=== PATIENT | female | born 1995 | race African-American/Black ===

== ENCOUNTER 2016-08-01 23:55 | Emergency (ER) | payer MEDICARE, OTHER ==
[~2016-08-01 23:55] MED LIST: CEPH-460 PO; DOXY1TAB6 PO
[2016-08-02] VITALS: BP 181/81; PULSE 80; RESP 16; TEMP 97.6; O2SAT 98
[2016-08-02] MEDS ORDERED: METF500T PO (00:32)
[2016-08-02] MEDS ORDERED: SODIUM CHLORIDE 0.9% FLUSH 5 ML FLUSH IVF PRN (02:00)
[2016-08-02] MEDS ORDERED: DICYCLOMINE HCL 10 MG CAP PO ONE (02:00)
[2016-08-02] MEDS ORDERED: MORPHINE SULFATE 8 MG/ML INJ IV PUSH ONE (02:00)
[2016-08-02 02:43] VITALS: BP 135/73; PULSE 78; RESP 18; O2SAT 100; O2SAT 99
[2016-08-02 02:51] LABS: BASOPHIL # 0.1 TH/MM3 (0-0.2); BASOPHIL % 0.7 % (0.0-2.0); EOSINOPHIL # 0.1 TH/MM3 (0-0.4); EOSINOPHIL % 1.1 % (0.0-4.0); HEMATOCRIT 41.3 % (35.0-46.0); HEMO FLAGS DIFF FINAL; LYMPH % 38.7 % (9.0-44.0); LYMPHOCYTE # 2.8 TH/MM3 (1.0-4.8); MEAN CELL VOLUME 79.2 FL (80.0-100.0); MEAN CORPUSCULAR HEMOGLOBIN 25.9 PG (27.0-34.0); MEAN CORPUSCULAR HGB CONC 32.7 % (32.0-36.0); MONO % 5.6 % (0.0-8.0); NEUT % 53.9 % (16.0-70.0); PLATELET COUNT 360 TH/MM3 (150-450); RED BLOOD COUNT 5.22 MIL/MM3 (4.00-5.30); RED CELL DISTRIBUTION WIDTH 14.4 % (11.6-17.2); WHITE BLOOD COUNT 7.3 TH/MM3 (4.0-11.0)
[2016-08-02 03:14] LABS: ALT (GPT) 32 U/L (10-53); ANION GAP 7 MEQ/L (5-15); AST (GOT) 19 U/L (15-37); BICARBONATE 26.6 MEQ/L (21.0-32.0); BLOOD UREA NITROGEN 10 MG/DL (7-18); CHLORIDE 106 MEQ/L (98-107); GLOMERULAR FILTRATION RATE 90 ML/MIN (>89); POTASSIUM 4.4 MEQ/L (3.5-5.1); SODIUM (NA) 140 MEQ/L (136-145)
[2016-08-02 03:16] LABS: ALKALINE PHOSPHATASE 60 U/L (45-117); TOTAL BILIRUBIN ADULT 0.2 MG/DL (0.2-1.0)
--- NOTE | 2016-08-02 03:20 | PD ---
HPI Chief Complaint: Care Management Associate Problem/Complaint Time Seen by Provider: 00:28 Travel History International Travel<30 days: No Contact w/Intl Traveler<30days: No Traveled to known affect area: No History of Present Illness HPI 21-year-old female arrives complaining of abdominal pain in the lower pelvis. It has been present for a couple days. It's worse with some changing of position. Onset has been gradual. Severity is variable the evidently is severe at times. She's had no nausea vomiting or diarrhea. She denies dysuria. No abnormal vaginal discharge or bleeding has occurred. The patient is normally irregular and the last menstruation occurred 5 months prior. Appetite has been normal. PFSH Past Medical History Asthma: Yes Cardiovascular Problems: Yes Diabetes: Yes (METFORMIN) Patient Takes Glucophage: Yes Diminished Hearing: No Genitourinary: Yes (POS) Hypertension: Yes Respiratory: Yes Immunizations Current: Yes Tetanus Vaccination: < 5 Years Influenza Vaccination: No ?: Unknown : 0 Para: 0 Miscarriage: 0 : 0 Past Surgical History Surgical History: No Previous Surgery Social History Alcohol Use: No Tobacco Use: No Substance Use: No (denies) Allergies-Medications (Allergen,Severity, Reaction): Coded Allergies: No Known Allergies (Unverified , 08/02/16) Reported Meds & Prescriptions Reported Meds & Active Scripts Active Reported Metformin (Metformin HCl) 500 Mg Tab 500 Mg PO BIDPC With meals Review of Systems Except as stated in HPI: all other systems reviewed are Neg Physical Exam Narrative GENERAL: 21-year-old female pleasant BMI greater than 40 SKIN: Warm and dry. HEAD: Atraumatic. Normocephalic. EYES: Pupils equal and round. No scleral icterus. No injection or drainage. ENT: No nasal bleeding or discharge. Mucous membranes pink and moist. NECK: Trachea midline. No JVD. CARDIOVASCULAR: Regular rate and rhythm. No murmur appreciated. RESPIRATORY: No accessory muscle use. Clear to auscultation. Breath sounds equal bilaterally. GASTROINTESTINAL: Soft. Nonspecific generalized tenderness present. MUSCULOSKELETAL: No obvious deformities. No clubbing. No cyanosis. No edema. NEUROLOGICAL: Awake and alert. No obvious cranial nerve deficits. Motor grossly within normal limits. Normal speech. PSYCHIATRIC: Appropriate mood and affect; insight and judgment normal. Data Data Last Documented VS Vital Signs Date Time Temp Pulse Resp B/P Pulse Ox O2 Delivery O2 Flow Rate FiO2 1/2/17 02:43 78 18 135/73 99 Room Air 08/02/16 00:00 97.6 Orders Ua Includes Microscopic (08/02/16 00:35) Ed Urine Pregnancytest Poc (08/02/16 00:35) Complete Blood Count With Diff (08/02/16 01:58) Comprehensive Metabolic Panel (08/02/16 01:58) Lipase (08/02/16 01:58) Iv Access Insert/Monitor (08/02/16 01:58) Ecg Monitoring (08/02/16 01:58) Oximetry (08/02/16 01:58) Sodium Chloride 0.9% Flush (Ns Flush) (08/02/16 02:00) Dicyclomine (Bentyl) (08/02/16 02:00) Morphine Inj (Morphine Inj) (08/02/16 02:00) Labs Laboratory Tests Test 08/02/16 08/02/16 02:38 03:35 White Blood Count 7.3 TH/MM3 Red Blood Count 5.22 MIL/MM3 Hemoglobin 13.5 GM/DL Hematocrit 41.3 % Mean Corpuscular Volume 79.2 FL Mean Corpuscular Hemoglobin 25.9 PG Mean Corpuscular Hemoglobin 32.7 % Concent Red Cell Distribution Width 14.4 % Platelet Count 360 TH/MM3 Mean Platelet Volume 7.8 FL Neutrophils (%) (Auto) 53.9 % Lymphocytes (%) (Auto) 38.7 % Monocytes (%) (Auto) 5.6 % Eosinophils (%) (Auto) 1.1 % Basophils (%) (Auto) 0.7 % Neutrophils # (Auto) 4.0 TH/MM3 Lymphocytes # (Auto) 2.8 TH/MM3 Monocytes # (Auto) 0.4 TH/MM3 Eosinophils # (Auto) 0.1 TH/MM3 Basophils # (Auto) 0.1 TH/MM3 CBC Comment DIFF FINAL Differential Comment Sodium Level 140 MEQ/L Potassium Level 4.4 MEQ/L Chloride Level 106 MEQ/L Carbon Dioxide Level 26.6 MEQ/L Anion Gap 7 MEQ/L Blood Urea Nitrogen 10 MG/DL Creatinine 0.94 MG/DL Estimat Glomerular Filtration 90 ML/MIN Rate Random Glucose 78 MG/DL Calcium Level 9.1 MG/DL Total Bilirubin 0.2 MG/DL Aspartate Amino Transf 19 U/L (AST/SGOT) Alanine Aminotransferase 32 U/L (ALT/SGPT) Alkaline Phosphatase 60 U/L Total Protein 8.0 GM/DL Albumin 3.6 GM/DL Lipase 107 U/L Urine Color LIGHT-YELLOW Urine Turbidity CLEAR Urine pH 5.5 Urine Specific [place] 1.006 Urine Protein NEG mg/dL Urine Glucose (UA) NEG mg/dL Urine Ketones NEG mg/dL Urine Occult Blood NEG Urine Nitrite NEG Urine Bilirubin NEG Urine Urobilinogen LESS THAN 2.0 MG/DL Urine Leukocyte Esterase MOD Urine RBC 1 /hpf Urine WBC 2 /hpf Urine Squamous Epithelial 2 /hpf Cells Urine Bacteria RARE /hpf MDM Medical Decision Making Medical Screen Exam Complete: Yes Emergency Medical Condition: Yes Medical Record Reviewed: Yes Differential Diagnosis Constipation, Gastritis, Acute Cholecystitis, Biliary Colic, Pancreatitis, MAR , Hepatitis, Bowel Obstruction, Cystitis, Mesenteric Ischemia, AAA, Appendicitis , Renal Stone/Hydronephrosis, GERD, perforated viscous Narrative Course CBC & BMP Diagram 08/02/16 02:38 LFTs normal Lipase normal Urinalysis shows no UTI The patient has slept throughout her ER course. The nature of her history and exam suggest or less in keeping with surgical or medical emergency. Pt will be discharged. Return precautions discussed. Diagnosis Primary Impression: Abdominal pain Qualified Code: R10.9 - Abdominal pain, unspecified location Referrals: Primary Care Physician 2 days Additional Instructions: You have a choice when it comes to health care, and we are glad that you chose [facility]. Hopefully, we have met your expectations on today's visit. You are welcome to return to [facility] at any time, as we are committed to meeting the health care needs of our community. Med/Other Pt SpecificInfo: No Change to Meds Disposition: 01 DISCHARGE HOME Condition: Gerry Burns MD Aug 02, 2016 03:20
[2016-08-02 04:01] LABS: BACTERIA, URINE RARE /hpf; BLOOD, URINE NEG (NEG); GLUCOSE,URINE NEG (NEG); KETONE, URINE NEG (NEG); NITRITE,URINE NEG (NEG); PH, URINE 5.5 (5.0-8.5); SQUAMOUS EPITHELIAL CELL URINE 2 /hpf (0-5); URINE COLOR LIGHT-YELLOW (YELLW/STRAW)
[2016-08-02 04:43] VITALS: BP 118/68; PULSE 69; RESP 18; O2SAT 100
[2016-08-02 04:59] VITALS: RESP 18
[2016-08-02] MEDS ORDERED: ACETAMINOPHEN/HYDROcodone 325 MG/5 MG TAB PO ONE (05:00)
== END 2016-08-02 05:01 | disposition home or self-care (01) ==
LOC: NEPC 23:55
DX: R10.2 Pelvic and perineal pain (principal)
CPT/HCPCS: 80053; 81001; 83690; 84703; 85025; 96374; 99284; J2270

== ENCOUNTER 2016-12-03 11:30 | Emergency (ER) | payer OTHER ==
[~2016-12-03] VITALS: Ht 182.9 cm; Wt 205.0 kg
[~2016-12-03 11:30] MED LIST changes: -CEPH-460 PO; -DOXY1TAB6 PO; +METF500T PO
[2016-12-03 11:32] VITALS: BP 180/86; PULSE 70; RESP 18; TEMP 98.2; O2SAT 100
--- NOTE | 2016-12-03 12:08 | PD ---
HPI Chief Complaint: Chest Pain Time Seen by Provider: 11:48 Travel History International Travel<30 days: No Contact w/Intl Traveler<30days: No Traveled to known affect area: No History of Present Illness HPI The patient is a 21-year-old [place] female who presents emergency department for chest pain, shortness of breath, and stress. The patient states she works 2 jobs, one at [employer] and the other is [email or web address]. The patient also is a college student at [employer], studying sociology. The patient states her last 5 days she's had constant chest pain which is described as constant, sharp, located over the sternum, nonradiating, associated mild shortness of breath, mild nausea. The patient denies any history of pulmonary embolism, DVT, or lower extremity edema. She denies any recent travel, hospitalizations, or surgeries. She is currently on Provera for irregular cycles, initially thought to be secondary to polycystic ovarian syndrome, but denies tobacco use. Patient does states she is under quite a bit of stress, sometimes her symptoms are exacerbated by thinking about her current situation. She denies any current abdominal pain, lower extremity edema, but does note intermittent lightheadedness and dizziness. PFSH Past Medical History Asthma: Yes Cardiovascular Problems: Yes (HTN ) Diabetes: Yes Patient Takes Glucophage: Yes Diminished Hearing: No Genitourinary: Yes (POS) Hypertension: Yes Respiratory: Yes Immunizations Current: Yes ?: Not : 0 Para: 0 Miscarriage: 0 : 0 Social History Alcohol Use: No Tobacco Use: No Substance Use: No (denies) Allergies-Medications (Allergen,Severity, Reaction): Coded Allergies: No Known Allergies (Unverified , 12/03/16) Reported Meds & Prescriptions Reported Meds & Active Scripts Active Reported Metformin (Metformin HCl) 500 Mg Tab 500 Mg PO BIDPC With meals Review of Systems Except as stated in HPI: all other systems reviewed are Neg General / Constitutional: No: Fever HENT: Positive: Lightheadedness Cardiovascular: Positive: Chest Pain or Discomfort, No: Dyspnea on exertion Respiratory: Positive: Shortness of Breath Gastrointestinal: Positive: Nausea Musculoskeletal: No: Myalgias, Arthralgias Neurologic: Positive: Dizziness Physical Exam Narrative GENERAL: Awake, alert, pleasant 21-year-old female who appears her stated age and is in no acute respiratory distress. SKIN: Focused skin assessment warm/dry. HEAD: Atraumatic. Normocephalic. EYES: Pupils equal and round. No scleral icterus. No injection or drainage. ENT: No nasal bleeding or discharge. Mucous membranes pink and moist. NECK: Trachea midline. No JVD. CARDIOVASCULAR: Regular rate and rhythm. No murmur appreciated. Heart rate in the 70s. RESPIRATORY: No accessory muscle use. Clear to auscultation. Breath sounds equal bilaterally. GASTROINTESTINAL: Abdomen soft, non-tender, nondistended. Obese, no rebound tenderness. MUSCULOSKELETAL: No obvious deformities. No clubbing. No cyanosis. No edema. Calves are soft bilaterally. NEUROLOGICAL: Awake and alert. No obvious cranial nerve deficits. Motor grossly within normal limits. Normal speech. PSYCHIATRIC: Appropriate mood and affect; insight and judgment normal. Data Data Last Documented VS Vital Signs Date Time Temp Pulse Resp B/P Pulse Ox O2 Delivery O2 Flow Rate FiO2 12/03/16 11:38 12/03/16 11:32 98.2 70 18 100 Orders Electrocardiogram (12/03/16 ) Electrocardiogram (12/03/16 12:02) Ckmb (Isoenzyme) Profile (12/03/16 12:02) Complete Blood Count With Diff (12/03/16 12:02) Comprehensive Metabolic Panel (12/03/16 12:02) Magnesium (Mg) (12/03/16 12:02) Prothrombin Time / Inr (Pt) (12/03/16 12:02) Act Partial Throm Time (Ptt) (12/03/16 12:02) Troponin I (12/03/16 12:02) Chest, Single Ap (12/03/16 12:02) Ecg Monitoring (12/03/16 12:02) Bilateral Bp Monitoring (12/03/16 12:02) Iv Access Insert/Monitor (12/03/16 12:02) Oximetry (12/03/16 12:02) Oxygen Administration (12/03/16 12:02) Morphine Inj (Morphine Inj) (12/03/16 12:15) Sodium Chloride 0.9% Flush (Ns Flush) (12/03/16 12:15) Sodium Chlorid 0.9% 500 Ml Inj (Ns 500 M (12/03/16 12:15) Ondansetron Inj (Zofran Inj) (12/03/16 12:15) CKMB (12/03/16 12:30) CKMB% (12/03/16 12:30) Sodium Chlor 0.9% 1000 Ml Inj (Ns 1000 M (12/03/16 13:30) Labs Laboratory Tests Test 12/03/16 12:30 White Blood Count 6.2 TH/MM3 Red Blood Count 4.93 MIL/MM3 Hemoglobin 11.9 GM/DL Hematocrit 38.1 % Mean Corpuscular Volume 77.3 FL Mean Corpuscular Hemoglobin 24.2 PG Mean Corpuscular Hemoglobin 31.3 % Concent Red Cell Distribution Width 15.0 % Platelet Count 344 TH/MM3 Mean Platelet Volume 7.2 FL Neutrophils (%) (Auto) 53.6 % Lymphocytes (%) (Auto) 39.1 % Monocytes (%) (Auto) 5.8 % Eosinophils (%) (Auto) 0.8 % Basophils (%) (Auto) 0.7 % Neutrophils # (Auto) 3.3 TH/MM3 Lymphocytes # (Auto) 2.4 TH/MM3 Monocytes # (Auto) 0.4 TH/MM3 Eosinophils # (Auto) 0.0 TH/MM3 Basophils # (Auto) 0.0 TH/MM3 CBC Comment AUTO DIFF Differential Comment AUTO DIFF CONFIRMED Prothrombin Time 10.6 SEC Prothromb Time International 1.0 RATIO Ratio Activated Partial 29.6 SEC Thromboplast Time Sodium Level 139 MEQ/L Potassium Level 4.4 MEQ/L Chloride Level 104 MEQ/L Carbon Dioxide Level 28.5 MEQ/L Anion Gap 7 MEQ/L Blood Urea Nitrogen 11 MG/DL Creatinine 1.03 MG/DL Estimat Glomerular Filtration 81 ML/MIN Rate Random Glucose 80 MG/DL Calcium Level 9.1 MG/DL Magnesium Level 2.2 MG/DL Total Bilirubin 0.2 MG/DL Aspartate Amino Transf 35 U/L (AST/SGOT) Alanine Aminotransferase 30 U/L (ALT/SGPT) Alkaline Phosphatase 60 U/L Total Creatine Kinase 1336 U/L Creatine Kinase MB 6.4 NG/ML Creatine Kinase MB % 0.5 % Troponin I LESS THAN 0.02 NG/ML Total Protein 7.5 GM/DL Albumin 3.6 GM/DL MDM Medical Decision Making Medical Screen Exam Complete: Yes Emergency Medical Condition: Yes Medical Record Reviewed: Yes Interpretation(s) EKG reveals sinus rhythm with sinus arrhythmia. Incomplete right bundle branch block with RSR prime in V1, QRS 118 ms. Inverted T-wave in lead 3. Last Impressions Chest X-Ray 12/03/16 1202 Signed Impressions: Service Date/Time: Saturday, December 03, 2016 12:03 - CONCLUSION: 1. No acute cardiopulmonary findings. Stable compared to previous. Gerry Rea MD Laboratory Tests Test 12/03/16 12:30 White Blood Count 6.2 TH/MM3 Red Blood Count 4.93 MIL/MM3 Hemoglobin 11.9 GM/DL Hematocrit 38.1 % Mean Corpuscular Volume 77.3 FL Mean Corpuscular Hemoglobin 24.2 PG Mean Corpuscular Hemoglobin 31.3 % Concent Red Cell Distribution Width 15.0 % Platelet Count 344 TH/MM3 Mean Platelet Volume 7.2 FL Neutrophils (%) (Auto) 53.6 % Lymphocytes (%) (Auto) 39.1 % Monocytes (%) (Auto) 5.8 % Eosinophils (%) (Auto) 0.8 % Basophils (%) (Auto) 0.7 % Neutrophils # (Auto) 3.3 TH/MM3 Lymphocytes # (Auto) 2.4 TH/MM3 Monocytes # (Auto) 0.4 TH/MM3 Eosinophils # (Auto) 0.0 TH/MM3 Basophils # (Auto) 0.0 TH/MM3 CBC Comment AUTO DIFF Differential Comment AUTO DIFF CONFIRMED Prothrombin Time 10.6 SEC Prothromb Time International 1.0 RATIO Ratio Activated Partial 29.6 SEC Thromboplast Time Sodium Level 139 MEQ/L Potassium Level 4.4 MEQ/L Chloride Level 104 MEQ/L Carbon Dioxide Level 28.5 MEQ/L Anion Gap 7 MEQ/L Blood Urea Nitrogen 11 MG/DL Creatinine 1.03 MG/DL Estimat Glomerular Filtration 81 ML/MIN Rate Random Glucose 80 MG/DL Calcium Level 9.1 MG/DL Magnesium Level 2.2 MG/DL Total Bilirubin 0.2 MG/DL Aspartate Amino Transf 35 U/L (AST/SGOT) Alanine Aminotransferase 30 U/L (ALT/SGPT) Alkaline Phosphatase 60 U/L Total Creatine Kinase 1336 U/L Creatine Kinase MB 6.4 NG/ML Creatine Kinase MB % 0.5 % Troponin I LESS THAN 0.02 NG/ML Total Protein 7.5 GM/DL Albumin 3.6 GM/DL Differential Diagnosis Differential diagnosis includes stress reaction, GERD, ACS, pleural effusion, pneumothorax, pulmonary embolism, esophageal spasm. Narrative Course IV was established, labs are drawn and sent, and the patient was placed on cardiac telemetry monitoring and continuous pulse oximetry monitoring. EKG was ordered and interpreted. The patient's heart rate was in the 70s, her O2 saturation on room air is on her percent, I do not believe this is pulmonary embolism. Therefore, d-dimer was not ordered. Chest x-ray was obtained. The patient was administered morphine and Zofran for her symptoms with IV fluids. Chest x-rays negative. CPK was elevated greater than 1000 consistent with rhabdomyolysis, CK-MB percentage was normal. Troponin was negative. The patient was administered IV fluids for her rhabdomyolysis. I do not believe the patient is having an acute cardiac event, most likely this is stress related with rhabdomyolysis. Patient will be discharged home. Diagnosis Primary Impression: Rhabdomyolysis Qualified Code: M62.82 - Non-traumatic rhabdomyolysis Additional Impression: Atypical chest pain Patient Instructions: General Instructions Additional Instructions: Follow-up with her primary physician. Return if symptoms worsen or progress. Decrease stress if possible with 2 jobs and college classes. Disposition: 01 DISCHARGE HOME Condition: Stable Adam Singh MD December 03, 2016 12:08
[2016-12-03] MEDS ORDERED: SODIUM CHLORID 0.9% 500 ML INJ 500 ML IV ONE (12:15)
[2016-12-03] MEDS ORDERED: ONDANSETRON HCL 4 MG/2 ML VIAL IV PUSH ONE (12:15)
[2016-12-03] MEDS ORDERED: SODIUM CHLORIDE 0.9% FLUSH 10 ML FLUSH IVF PRN (12:15)
[2016-12-03] MEDS ORDERED: MORPHINE SULFATE 4 MG/ML INJ IV PUSH ONE (12:15)
--- NOTE | 2016-12-03 12:40 | RADRPT ---
EXAM DATE/TIME: 12/03/2016 12:03 [facility] COMPARISON: CHEST SINGLE AP, January 28, 2016, 22:06. INDICATIONS : Chest pain, shortness of breath. MEDICAL HISTORY : Hypertension. Diabetes mellitus type II. Asthma. SURGICAL HISTORY : None. ENCOUNTER: Initial ACUITY: 4 - 6 days PAIN SCORE: 7/10 LOCATION: chest midline. FINDINGS: A single view of the chest demonstrates the lungs to be symmetrically aerated without evidence of mas s, infiltrate or effusion. The cardiomediastinal contours are at the upper limits of normal in size. Osseous structures are intact. CONCLUSION: 1. No acute cardiopulmonary findings. Stable compared to previous. Gerry Rea MD on December 03, 2016 at 12:38 Board Certified Radiologist. This report was verified electronically.
[2016-12-03 12:47] LABS: AUTOMATED NEUTROPHIL # 3.3 TH/MM3 (1.8-7.7); BASOPHIL % 0.7 % (0.0-2.0); EOSINOPHIL % 0.8 % (0.0-4.0); HEMATOCRIT 38.1 % (35.0-46.0); LYMPH % 39.1 % (9.0-44.0); LYMPHOCYTE # 2.4 TH/MM3 (1.0-4.8); MEAN CELL VOLUME 77.3 FL (80.0-100.0); MEAN CORPUSCULAR HEMOGLOBIN 24.2 PG (27.0-34.0); MEAN CORPUSCULAR HGB CONC 31.3 % (32.0-36.0); MONO % 5.8 % (0.0-8.0); NEUT % 53.6 % (16.0-70.0); PLATELET COUNT 344 TH/MM3 (150-450); RED BLOOD COUNT 4.93 MIL/MM3 (4.00-5.30); WHITE BLOOD COUNT 6.2 TH/MM3 (4.0-11.0)
[2016-12-03 12:49] LABS: HEMO FLAGS AUTO DIFF
[2016-12-03 12:56] LABS: APTT (PATIENT) 29.6 SEC (24.3-30.1); PROTHROMBIN TIME - PATIENT 10.6 SEC (9.8-11.6)
[2016-12-03 13:00] LABS: ANION GAP 7 MEQ/L (5-15); AST (GOT) 35 U/L (15-37); BICARBONATE 28.5 MEQ/L (21.0-32.0); BLOOD UREA NITROGEN 11 MG/DL (7-18); CHLORIDE 104 MEQ/L (98-107); GLOMERULAR FILTRATION RATE 81 ML/MIN (>89); MAGNESIUM 2.2 MG/DL (1.5-2.5); POTASSIUM 4.4 MEQ/L (3.5-5.1); SODIUM (NA) 139 MEQ/L (136-145)
[2016-12-03 13:15] LABS: ALKALINE PHOSPHATASE 60 U/L (45-117); ALT (GPT) 30 U/L (10-53); CREATINE KINASE 1336 U/L (26-192); TOTAL BILIRUBIN ADULT 0.2 MG/DL (0.2-1.0)
[2016-12-03 13:27] LABS: SCAN/DIFF AUTO DIFF CONFIRMED
[2016-12-03 13:28] LABS: CKMB 6.4 NG/ML (0.5-3.6)
[2016-12-03] MEDS ORDERED: SODIUM CHLOR 0.9% 1000 ML INJ 1,000 ML IV ONE (13:30)
[2016-12-03 13:51] VITALS: BP 122/70; PULSE 87; RESP 16; O2SAT 100
--- NOTE | 2016-12-04 22:02 | EKG ---
Date Performed: 12/03/2016 Time Performed: 11:55:12 PTAGE: 21 years EKG: Sinus rhythm WITH MARKED SINUS ARRHYTHMIA WITH FIRST DEGREE AV BLOCK INCOMPLETE RIGHT BUNDLE BRANCH BLOCK ABNORMA L ECG NO PREVIOUS TRACING DOCTOR: Shanae Theodore Interpretating Date/Time 12/04/2016 21:57:28
== END 2016-12-03 14:35 | disposition home or self-care (01) ==
LOC: NEPE 11:30
DX: M62.82 Rhabdomyolysis (principal); R07.89 Other chest pain; I10 Essential (primary) hypertension; E11.9 Type 2 diabetes mellitus without complications; I49.8 Other specified cardiac arrhythmias; I44.0 Atrioventricular block, first degree; I45.19 Other right bundle-branch block; R94.31 Abnormal electrocardiogram [ECG] [EKG]; R06.02 Shortness of breath
CPT/HCPCS: 71010; 80053; 82550; 82552; 83735; 84484; 85025; 85610; 85730; 93005; 96361; 96374; 96375; 99285; J2270; J2405; J7030; J7040

== ENCOUNTER 2017-04-23 21:41 | Emergency (ER) | payer SELFPAY ==
[2017-04-23 21:43] VITALS: BP 139/88; PULSE 92; RESP 16; TEMP 98.9; O2SAT 98
[2017-04-24] MEDS ORDERED: SODIUM CHLORIDE 0.9% FLUSH 10 ML FLUSH IVF PRN (00:15)
--- NOTE | 2017-04-24 00:28 | PD ---
HPI Chief Complaint: Chest Pain Time Seen by Provider: 00:02 Travel History International Travel<30 days: No Contact w/Intl Traveler<30days: No Traveled to known affect area: No History of Present Illness HPI Is a 21 year-old woman presents emergency department when he of sharp pains in her chest and abdomen started about a week or so ago. States it been associated with increased stress. She's had nausea but no vomiting. No change in her problems. No swelling in her legs. History Past Medical History Narrative Medical Morbid obesity Hypertension Diabetes Asthma : 0 Para: 0 Past Surgical History Surgical History: No Previous Surgery Social History Alcohol Use: No Tobacco Use: No Allergies-Medications (Allergen,Severity, Reaction): Coded Allergies: No Known Allergies (Unverified , 12/03/16) Reported Meds & Prescriptions Reported Meds & Active Scripts Active Reported Metformin (Metformin HCl) 500 Mg Tab 500 Mg PO BIDPC With meals Review of Systems Except as stated in HPI: all other systems reviewed are Neg Physical Exam Narrative GENERAL: Well-appearing 21 year-old woman, morbidly obese, no acute distress. SKIN: Focused skin assessment warm/dry. HEAD: Atraumatic. Normocephalic. EYES: Pupils equal and round. No scleral icterus. No injection or drainage. ENT: No nasal bleeding or discharge. Mucous membranes pink and moist. NECK: Trachea midline. No JVD. CARDIOVASCULAR: Regular rate and rhythm. No murmur appreciated. RESPIRATORY: No accessory muscle use. Clear to auscultation. Breath sounds equal bilaterally. GASTROINTESTINAL: Abdomen is obese, soft, mild right upper quadrant epigastric tenderness to palpation. MUSCULOSKELETAL: No obvious deformities. No clubbing. No cyanosis. No edema. NEUROLOGICAL: Awake and alert. No obvious cranial nerve deficits. Motor grossly within normal limits. Normal speech. PSYCHIATRIC: Appropriate mood and affect; insight and judgment normal. Data Data Last Documented VS Vital Signs Date Time Temp Pulse Resp B/P (MAP) Pulse Ox O2 Delivery O2 Flow Rate FiO2 04/24/17 01:06 98 04/24/17 01:06 Room Air 04/23/17 21:43 98.9 92 16 Orders Orders Electrocardiogram (04/24/17 00:10) Complete Blood Count With Diff (04/24/17 00:10) Comprehensive Metabolic Panel (04/24/17 00:10) Lipase (04/24/17 00:10) Chest, Single Ap (04/24/17 00:10) Ecg Monitoring (04/24/17 00:10) Iv Access Insert/Monitor (04/24/17 00:10) Oximetry (04/24/17 00:10) Oxygen Administration (04/24/17 00:10) Sodium Chloride 0.9% Flush (Ns Flush) (04/24/17 00:15) Us Abdomen Gallbladder (04/24/17 ) Labs Laboratory Tests Test 04/24/17 00:15 White Blood Count 8.1 TH/MM3 Red Blood Count 5.05 MIL/MM3 Hemoglobin 13.2 GM/DL Hematocrit 40.2 % Mean Corpuscular Volume 79.7 FL Mean Corpuscular Hemoglobin 26.1 PG Mean Corpuscular Hemoglobin Concent 32.7 % Red Cell Distribution Width 14.7 % Platelet Count 355 TH/MM3 Mean Platelet Volume 7.3 FL Neutrophils (%) (Auto) 54.7 % Lymphocytes (%) (Auto) 37.7 % Monocytes (%) (Auto) 6.5 % Eosinophils (%) (Auto) 0.6 % Basophils (%) (Auto) 0.5 % Neutrophils # (Auto) 4.4 TH/MM3 Lymphocytes # (Auto) 3.0 TH/MM3 Monocytes # (Auto) 0.5 TH/MM3 Eosinophils # (Auto) 0.0 TH/MM3 Basophils # (Auto) 0.0 TH/MM3 CBC Comment DIFF FINAL Differential Comment Blood Urea Nitrogen 9 MG/DL Creatinine 1.01 MG/DL Random Glucose 98 MG/DL Total Protein 7.9 GM/DL Albumin 3.4 GM/DL Calcium Level 9.2 MG/DL Alkaline Phosphatase 56 U/L Aspartate Amino Transf (AST/SGOT) 22 U/L Alanine Aminotransferase (ALT/SGPT) 27 U/L Total Bilirubin 0.2 MG/DL Sodium Level 138 MEQ/L Potassium Level 3.8 MEQ/L Chloride Level 103 MEQ/L Carbon Dioxide Level 28.9 MEQ/L Anion Gap 6 MEQ/L Estimat Glomerular Filtration Rate 82 ML/MIN Lipase 96 U/L MDM Medical Decision Making Medical Screen Exam Complete: Yes Emergency Medical Condition: Yes Interpretation(s) My review of EKG: Normal sinus rhythm at a rate of 98, normal axis, normal intervals, nonspecific lateral T-wave flattening, rough baseline, no definite evidence of acute ischemia. LABS: CBC unremarkable. CMP is unremarkable. Lipase is normal. Right upper quadrant ultrasound: Hepatomegaly without focal lesion. No gallstones. Chest x-ray: Lungs are clear. Differential Diagnosis Anxiety, reflux, gastritis, pancreatitis, hepatobiliary disease, other Narrative Course Medical decision making Obese 19 year-old woman presents emergency Department with retrosternal chest pain and epigastric tenderness, likely anxiety or gastritis, concern for cholecystitis check labs, ultrasound, reassess. Diagnosis Primary Impression: Atypical chest pain Additional Instructions: Take acetaminophen as needed for chest pain. Take trial of ranitidine for 2 weeks. Follow-up with your primary doctor in the next one to 2 weeks for repeat evaluation. Return to the emergency department for any new or worsening symptoms. Med/Other Pt SpecificInfo: Prescription(s) given Scripts Ranitidine (Ranitidine) 150 Mg Tab 150 MG PO BID for Heartburn Management for 14 Days, #28 TAB 0 Refills Prov: Hipolito Valdez MD 04/24/17 Disposition: 01 DISCHARGE HOME Condition: Stable Hipolito Valdez MD Apr 24, 2017 00:28
[2017-04-24 00:54] LABS: AUTOMATED NEUTROPHIL # 4.4 TH/MM3 (1.8-7.7); BASOPHIL % 0.5 % (0.0-2.0); EOSINOPHIL % 0.6 % (0.0-4.0); HEMATOCRIT 40.2 % (35.0-46.0); HEMO FLAGS DIFF FINAL; LYMPH % 37.7 % (9.0-44.0); MEAN CELL VOLUME 79.7 FL (80.0-100.0); MEAN CORPUSCULAR HEMOGLOBIN 26.1 PG (27.0-34.0); MEAN CORPUSCULAR HGB CONC 32.7 % (32.0-36.0); MONO % 6.5 % (0.0-8.0); NEUT % 54.7 % (16.0-70.0); PLATELET COUNT 355 TH/MM3 (150-450); RED BLOOD COUNT 5.05 MIL/MM3 (4.00-5.30); RED CELL DISTRIBUTION WIDTH 14.7 % (11.6-17.2); WHITE BLOOD COUNT 8.1 TH/MM3 (4.0-11.0)
--- NOTE | 2017-04-24 01:02 | RADRPT ---
EXAM DATE/TIME: 04/24/2017 00:21 [facility] COMPARISON: CHEST SINGLE AP, December 03, 2016, 12:03. INDICATIONS : Chest pain. MEDICAL HISTORY : Hypertension. Diabetes mellitus type II. Asthma SURGICAL HISTORY : None. ENCOUNTER: Initial ACUITY: 1 week PAIN SCORE: 9/10 LOCATION: Bilateral chest FINDINGS: A single view of the chest demonstrates the lungs to be symmetrically aerated without evidence of mas s, infiltrate or effusion. The cardiomediastinal contours are unremarkable. Osseous structures are intact. Large body habitus. CONCLUSION: The lungs are clear. Kaiser Junior MD on April 24, 2017 at 1:00 Board Certified Radiologist. This report was verified electronically.
[2017-04-24 01:06] VITALS: O2SAT 98
[2017-04-24 01:11] LABS: ALT (GPT) 27 U/L (10-53); ANION GAP 6 MEQ/L (5-15); AST (GOT) 22 U/L (15-37); BICARBONATE 28.9 MEQ/L (21.0-32.0); BLOOD UREA NITROGEN 9 MG/DL (7-18); CHLORIDE 103 MEQ/L (98-107); GLOMERULAR FILTRATION RATE 82 ML/MIN (>89); POTASSIUM 3.8 MEQ/L (3.5-5.1); SODIUM (NA) 138 MEQ/L (136-145)
[2017-04-24 01:13] LABS: ALKALINE PHOSPHATASE 56 U/L (45-117); TOTAL BILIRUBIN ADULT 0.2 MG/DL (0.2-1.0)
--- NOTE | 2017-04-24 01:47 | RADRPT ---
EXAM DATE/TIME: 04/24/2017 00:48 [facility] COMPARISON: No previous studies available for comparison. INDICATIONS : Right upper quadrant pain. MEDICAL HISTORY : Hypertension. Asthma. Right upper quadrant pain. Diabetes. SURGICAL HISTORY : None. ENCOUNTER: Initial ACUITY: 1 month PAIN SCORE: 8/10 LOCATION: Right upper quadrant MEASUREMENTS: LIVER: 17.8 cm length COMMON DUCT: 2 mm RIGHT KIDNEY: 11.4 x 5.5 x 4.7 cm FINDINGS: LIVER: Fairly homogeneous echotexture without focal lesion or ductal dilatation. Hepatopedal flow is seen i n the portal vein. COMMON DUCT: No intraluminal mass or stone visualized. GALLBLADDER: Contains no stones, demonstrates no wall thickening or pericholecystic fluid. PANCREAS: Not well-seen. RIGHT KIDNEY: No evidence of hydronephrosis, stone, or mass. CONCLUSION: 1. Hepatomegaly without focal lesion. 2. No gallstones seen. Kaiser Junior MD on April 24, 2017 at 1:32 Board Certified Radiologist. This report was verified electronically.
[2017-04-24] MEDS ORDERED: RANI150T PO (02:04)
[2017-04-24] MEDS ORDERED: RANITIDINE HCL SYRUP 150 MG/10 ML UDC PO ONE (02:15)
[2017-04-24] MEDS ORDERED: ACETAMINOPHEN 500 MG CPLT PO ONE (02:15)
[2017-04-24 02:34] VITALS: BP 139/99
--- NOTE | 2017-04-24 13:44 | EKG ---
Date Performed: 04/23/2017 Time Performed: 23:52:57 PTAGE: 22 years EKG: Sinus rhythm NONSPECIFIC T-WAVE ABNORMALITY BORDERLINE ECG PREVIOUS TRACING 12/03/16 Since previous tracing, T-waves are more flattened anterolateraly. DOCTOR: aPtrick Espino Interpretating Date/Time 04/24/2017 13:43:41
== END 2017-04-24 02:57 | disposition home or self-care (01) ==
LOC: NEPC 21:41
DX: R07.89 Other chest pain (principal); R11.0 Nausea; R94.31 Abnormal electrocardiogram [ECG] [EKG]; I10 Essential (primary) hypertension; E11.9 Type 2 diabetes mellitus without complications; R10.9 Unspecified abdominal pain; J45.909 Unspecified asthma, uncomplicated
CPT/HCPCS: 71010; 76705; 80053; 83690; 85025; 93005; 99285

== ENCOUNTER 2017-06-01 23:48 | Emergency (ER) | payer SELFPAY ==
[~2017-06-01] VITALS: Ht 188 cm; Wt 214.9 kg
[~2017-06-01 23:48] MED LIST changes: +RANI150T PO
[2017-06-01 23:50] VITALS: BP 173/79; PULSE 76; RESP 16; TEMP 97.4; O2SAT 100
[2017-06-02] MEDS ORDERED: SODIUM CHLORIDE 0.9% FLUSH 10 ML FLUSH IVF PRN (01:15)
[2017-06-02 01:23] VITALS: BP 140/80; PULSE 74; RESP 19; O2SAT 100
[2017-06-02 01:24] VITALS: BP 105/66; PULSE 77; RESP 19; O2SAT 100
[2017-06-02 01:39] LABS: AUTOMATED NEUTROPHIL # 4.8 TH/MM3 (1.8-7.7); BASOPHIL # 0.1 TH/MM3 (0-0.2); BASOPHIL % 1.3 % (0.0-2.0); EOSINOPHIL # 0.1 TH/MM3 (0-0.4); EOSINOPHIL % 0.8 % (0.0-4.0); HEMATOCRIT 37.7 % (35.0-46.0); HEMO FLAGS DIFF FINAL; LYMPH % 36.5 % (9.0-44.0); LYMPHOCYTE # 3.3 TH/MM3 (1.0-4.8); MEAN CELL VOLUME 80.5 FL (80.0-100.0); MEAN CORPUSCULAR HEMOGLOBIN 25.5 PG (27.0-34.0); MEAN CORPUSCULAR HGB CONC 31.7 % (32.0-36.0); MONO % 7.5 % (0.0-8.0); NEUT % 53.9 % (16.0-70.0); PLATELET COUNT 474 TH/MM3 (150-450); RED BLOOD COUNT 4.69 MIL/MM3 (4.00-5.30)
--- NOTE | 2017-06-02 01:59 | PD ---
HPI . Headache and dizziness Chief Complaint: Dizziness Time Seen by Provider: 01:04 Travel History International Travel<30 days: No Contact w/Intl Traveler<30days: No Traveled to known affect area: No History of Present Illness HPI This patient presents with the chief complaint of headache and dizziness. Onset was a week ago. She reports that she's been using Herbalife for about 2 weeks he believes that her symptoms are related to Herbalife. She describes a throbbing headache which she rates 8/10. Headache is exacerbated by movement. It is associated with dizziness, nausea, chest pain, blurred vision. She has not taken anything for the headache prior to presentation. [facility] Past Medical History Asthma: Yes Cardiovascular Problems: Yes (HTN ) Diabetes: Yes ("pre") Patient Takes Glucophage: No Diminished Hearing: No Genitourinary: Yes (POS) Hypertension: Yes Respiratory: Yes Immunizations Current: Yes Tetanus Vaccination: Unknown Influenza Vaccination: No ?: Not LMP: 05/20/2017 : 0 Para: 0 Miscarriage: 0 : 0 Past Surgical History Surgical History: No Previous Surgery Social History Alcohol Use: No Tobacco Use: No Substance Use: No (denies) Allergies-Medications (Allergen,Severity, Reaction): Coded Allergies: No Known Allergies (Verified Adverse Reaction, Unknown, 06/02/17) Reported Meds & Prescriptions Reported Meds & Active Scripts Active Reported Metformin (Metformin HCl) 500 Mg Tab 500 Mg PO BIDPC With meals Review of Systems Except as stated in HPI: all other systems reviewed are Neg General / Constitutional: No: Fever, Chills Eyes: Positive: Blurred Vision HENT: Positive: Headaches Cardiovascular: Positive: Chest Pain or Discomfort Gastrointestinal: Positive: Nausea Physical Exam Narrative GENERAL: Morbidly obese. No acute distress. SKIN: warm/dry. HEAD: Normocephalic. Atraumatic. EYES: Pupils equal and round. No scleral icterus. No injection or drainage. ENT: No nasal bleeding or discharge. Mucous membranes pink and moist. NECK: Trachea midline. Full range of motion without pain.. CARDIOVASCULAR: Regular rate and rhythm. Heart sounds are normal. RESPIRATORY: No accessory muscle use. Clear to auscultation. Breath sounds equal bilaterally. GASTROINTESTINAL: Abdomen soft. Nontender. Bowel sounds present. Nondistended. MUSCULOSKELETAL: No obvious deformities. NEUROLOGICAL: Awake and alert. No obvious cranial nerve deficits. Motor grossly within normal limits. Normal speech. PSYCHIATRIC: Appropriate mood and affect; insight and judgment normal. Data Data Last Documented VS Vital Signs Date Time Temp Pulse Resp B/P (MAP) Pulse Ox O2 Delivery O2 Flow Rate FiO2 06/02/17 03:47 126 24 117/82 (94) 98 Nasal Cannula 2.00 06/01/17 23:50 97.4 Orders Orders Electrocardiogram (06/02/17 ) Basic Metabolic Panel (Bmp) (06/02/17 01:04) Ed Urine Pregnancytest Poc (06/02/17 01:04) Complete Blood Count With Diff (06/02/17 01:04) Iv Access Insert/Monitor (06/02/17 01:04) Sodium Chloride 0.9% Flush (Ns Flush) (06/02/17 01:15) Prochlorperazine Inj (Compazine Inj) (06/02/17 02:00) Diphenhydramine Inj (Benadryl Inj) (06/02/17 02:00) Sodium Chlor 0.9% 1000 Ml Inj (Ns 1000 M (06/02/17 02:30) Lorazepam Inj (Ativan Inj) (06/02/17 03:15) Labs Laboratory Tests Test 06/02/17 01:20 White Blood Count 9.0 TH/MM3 Red Blood Count 4.69 MIL/MM3 Hemoglobin 12.0 GM/DL Hematocrit 37.7 % Mean Corpuscular Volume 80.5 FL Mean Corpuscular Hemoglobin 25.5 PG Mean Corpuscular Hemoglobin Concent 31.7 % Red Cell Distribution Width 14.0 % Platelet Count 474 TH/MM3 Mean Platelet Volume 7.1 FL Neutrophils (%) (Auto) 53.9 % Lymphocytes (%) (Auto) 36.5 % Monocytes (%) (Auto) 7.5 % Eosinophils (%) (Auto) 0.8 % Basophils (%) (Auto) 1.3 % Neutrophils # (Auto) 4.8 TH/MM3 Lymphocytes # (Auto) 3.3 TH/MM3 Monocytes # (Auto) 0.7 TH/MM3 Eosinophils # (Auto) 0.1 TH/MM3 Basophils # (Auto) 0.1 TH/MM3 CBC Comment DIFF FINAL Differential Comment Blood Urea Nitrogen 15 MG/DL Creatinine 1.12 MG/DL Random Glucose 80 MG/DL Calcium Level 9.7 MG/DL Sodium Level 136 MEQ/L Potassium Level 4.0 MEQ/L Chloride Level 101 MEQ/L Carbon Dioxide Level 26.1 MEQ/L Anion Gap 9 MEQ/L Estimat Glomerular Filtration Rate 73 ML/MIN MDM Medical Decision Making Medical Screen Exam Complete: Yes Emergency Medical Condition: Yes Interpretation(s) EKG shows a sinus rhythm with a rate of 75. No ST segment elevation or depression. Repeat EKG shows tachycardia. The computer is reading it as atrial flutter. It 's very regular. I do not see any flutter waves. Differential Diagnosis Differential diagnosis of headache includes but is not limited to migraine, muscle contraction headache, brain tumor, brain bleed Narrative Course This patient presents complaining with headache, dizziness, chest pain, shortness of breath and nausea. All symptoms started after starting Herbalife. She looks well. The patient was given Compazine and Benadryl. She subsequently developed tachycardia. Blood pressure dropped to 105 systolic. I have ordered a liter of fluid. Following the fluids and some time, the patient reports that she feels "a little bit better." She was subsequently given Ativan. The nurses report that she had the immediate onset of tachycardia and feeling flushed when she was given Compazine and Benadryl. She was not tachycardic prior to this. The patient's mother has been at the bedside and seems to be adding to the patient's anxiety. The patient will be discharged and instructed to go to bed. Diagnosis Primary Impression: Headache Qualified Codes: G44.209 - Tension-type headache, unspecified, not intractable Additional Impression: Adverse reaction to prochlorperazine Qualified Codes: T43.3X5A - Adverse effect of phenothiazine antipsychotics and neuroleptics, initial encounter Patient Instructions: Acute Headache (DC), Adverse Drug Reaction (ED), General Instructions Disposition: 01 DISCHARGE HOME Condition: Stable Jaida Galicia MD Jun 02, 2017 01:59
[2017-06-02] MEDS ORDERED: PROCHLORPERAZINE INJ 10 MG/2 ML VIAL IV PUSH ONE (02:00)
[2017-06-02] MEDS ORDERED: diphenhydrAMINE HCL 50 MG/ML VIAL IV PUSH ONE (02:00)
[2017-06-02 02:06] LABS: BICARBONATE 26.1 MEQ/L (21.0-32.0)
[2017-06-02 02:27] VITALS: BP 117/82; PULSE 135; RESP 24; O2SAT 100
[2017-06-02] MEDS ORDERED: SODIUM CHLOR 0.9% 1000 ML INJ 1,000 ML IV ONE (02:30)
[2017-06-02] MEDS ORDERED: LORazepam 2 MG/ML VIAL IV PUSH ONE (03:15)
[2017-06-02 03:47] VITALS: BP 117/82; PULSE 126; RESP 24; O2SAT 98
[2017-06-02 04:07] VITALS: PULSE 117; RESP 18; O2SAT 98
--- NOTE | 2017-06-02 13:40 | EKG ---
Date Performed: 06/02/2017 Time Performed: 00:18:12 PTAGE: 22 years EKG: Sinus rhythm WITH FIRST DEGREE AV BLOCK Compared to previous tracing first degree heart block is new ABNORMAL ECG PREVIOUS TRACING : 04/23/2017 23.52 DOCTOR: George Ramirez Interpretating Date/Time 06/02/2017 13:39:46
--- NOTE | 2017-06-02 13:42 | EKG ---
Date Performed: 06/02/2017 Time Performed: 02:25:42 PTAGE: 22 years EKG: ATRIAL FLUTTER/TACHYCARDIA WITH RAPID VENTRICULAR RESPONSE NONSPECIFIC ST & T-WAVE ABNORMAL ITY ABNORMAL RHYTHM ECG Compared to PREVIOUS TRACING rate has increased significantly, ST depression is new, suggests possib le ischemia Clinical correlation is recommended PREVIOUS TRACIN04/23/2017 23.52 DOCTOR: George Ramirez Interpretating Date/Time 06/02/2017 13:40:45
== END 2017-06-02 04:21 | disposition home or self-care (01) ==
LOC: NEPE 23:48
DX: R51 Headache (principal); T43.3X5A Adverse effect of phenothiazine antipsychotics and neuroleptics, initial encounter; R00.0 Tachycardia, unspecified; R07.9 Chest pain, unspecified; R06.02 Shortness of breath; R11.0 Nausea; R42 Dizziness and giddiness; I44.0 Atrioventricular block, first degree; R94.31 Abnormal electrocardiogram [ECG] [EKG]
CPT/HCPCS: 80048; 84703; 85025; 93005; 96361; 96374; 96375; 99284; J0780; J1200; J2060; J7030